=== PATIENT | female | born 1990 | race Caucasian/White ===

== ENCOUNTER 2018-07-07 20:45 | Inpatient (IN) | payer BC ==
[~2018-07-07] VITALS: Ht 170.2 cm; Wt 65.8 kg
== END 2018-07-14 18:06 | disposition home or self-care (01) | DRG 195 ==
LOC: ER 20:45 → SEC-K 07-08 09:22 → MEDJ 07-08 12:43
PROC: 3E0F7GC Introduction of Other Therapeutic Substance into Respiratory Tract, Via Natural or Artificial Opening (ICD-10-PCS; principal; 2018-07-08)
PROC: 4A033R1 Measurement of Arterial Saturation, Peripheral, Percutaneous Approach (ICD-10-PCS; 2018-07-08)
DX: J10.00 Influenza due to other identified influenza virus with unspecified type of pneumonia (principal); Z88.0 Allergy status to penicillin